=== PATIENT | female | born 1990 | race Native Hawaiian/Other Pacific Islander ===

== ENCOUNTER 2019-03-25 10:57 | Inpatient (IN) | payer MEDICAID ==
[2019-03-25] VITALS (11 sets, daily range): BP systolic 127–144; BP diastolic 54–95; PULSE 59–74; TEMP 98.2–98.6
[~2019-03-25] VITALS: Ht 154.9 cm; Wt 96.4 kg
--- NOTE | 2019-03-25 12:30 | NUR ---
1150- Pt arrives on unit ambulatory as a direct admit from the office for active labor. Oriented to room. Pt into bathroom, changes into gown. 1159- Pt into bed. EFM and TOCO applied. Assessment completed. Pt denies complications with . Denies VB, LOF. +FM. IV start, labs obtained. Pt tolerated well. Consent forms explained and signed. Plan of care discussed, questions answered. Call light within reach.
[2019-03-25 12:38] LABS: BASO % 0.2 % (0.0-2.0); EOS # 0.2 (0.0-0.7); EOS % 1.6 % (0-4.0); GRAN # 8.7 (1.4-6.5); GRAN % 78.3 % (42.2-75.2); HEMATOCRIT 39.6 % (37.0-47.0); HEMOGLOBIN 13.6 g/dl (12.5-16.0); LYMPH # 1.6 (1.2-3.4); LYMPH % 14.5 % (20.0-51.0); MEAN CELL VOLUME 87 fl (80.0-100.0); MEAN CORPUSCULAR HEMOGLOBIN 30 pg (27.0-31.0); MEAN CORPUSCULAR HGB CONC 34 g/dl (33.0-37.0); MEAN PLATELET VOLUME 9.6 fl (7.4-10.4); MONO # 0.6 (0.1-0.6); PLATELET COUNT 249 K/mm3 (130-400); RED BLOOD COUNT 4.54 M/mm3 (4.10-5.30); REDCELL DISTRIBUTION WIDTH-CV 12.5 % (11.5-14.5)
--- NOTE | 2019-03-25 13:08 | NUR ---
1308- Pt requests to use bathroom and ambulate, discussed precautions. Pt verbalizes understanding. EFM and TOCO off. IV to saline lock.
--- NOTE | 2019-03-25 14:28 | NUR ---
1417- Hansa, Nursery RN and Magali, clinical application manager called to bedside. Pt feeling very pushy with UCs. Pt encouraged to breathe and not push, Pt controlled most of the time, no pushed noted by Pt. 1422- Dr Taylor at bedside, SVE 10/+1. Pt and room prepped, bed broken down for delivery. Pt encouraged to push with next UC. 1428- of viable male . Cord clamped and cut. Infant to warmer, tended to by nursery nurse. Cord gases and cord blood obtained. 1435- Spontaneous vaginal delivery of placenta. Pitocin started at 333mu via pump. Fundus massaged to firm. Perinuem intact. Pericare completed. Ice pack to perineum. Pt denies pain at this time.
--- NOTE | 2019-03-25 16:05 | NUR ---
1605- Pt ambulates to bathroom independently with RN standby. Voids 250ml. Pericare completed and explained. Peripad and underwear on, clean gown. Pt desires to sit in blue chair. Plan to finish IVF then Saline lock, Pt wants to visit baby in nursery then settle into PP room.
[2019-03-26 03:30] VITALS: BP 127/82; PULSE 67; TEMP 98.1
[2019-03-26] MEDS ORDERED: IBU600 MG PO (06:17)
[2019-03-26 09:30] VITALS: BP 130/79; PULSE 70; TEMP 98
--- NOTE | 2019-03-26 09:30 | NUR ---
Rests in bed, alert. Denies any needs at this time. Explained to patient about starting to pump.
[2019-03-26 11:19] LABS: HEMOGLOBIN 12.5 g/dl (12.5-16.0)
--- NOTE | 2019-03-26 11:30 | NUR ---
Rests in bed, alert. Family at bedside.
[2019-03-26 11:36] LABS: HEMATOCRIT 36.9 % (37.0-47.0)
[2019-03-26 12:30] VITALS: BP 131/77; PULSE 71; TEMP 98.2
[2019-03-26 16:15] VITALS: BP 136/81; PULSE 71; TEMP 97.7
[2019-03-26 21:30] VITALS: BP 144/82; PULSE 84; TEMP 98.8
[2019-03-27 10:00] VITALS: BP 134/87; PULSE 67
--- NOTE | 2019-03-27 10:20 | NUR ---
PATIENT TO BOARDER STATUS
--- NOTE | 2019-03-27 11:00 | NUR ---
Initial visit; Patient thanked Nutrition Director for offering congratulations and God's blessings for the of her son. Nutrition Director thanked patient for choosing [facility].
== END 2019-03-27 10:20 | disposition home or self-care (01) | DRG 807 ==
LOC: LDRO 10:57 → EDSTATUS 11:13 → OB 11:16 → LDR 11:47 → OB 11:47 → LDR 11:50 → OB 03-26 09:42
PROVIDERS: ADMIT Obstetrics & Gynecology
PROC: 10E0XZZ Delivery of Products of Conception, External Approach (ICD-10-PCS; principal; 2019-03-25)
DX: O77.0 Labor and delivery complicated by meconium in amniotic fluid (principal); Z37.0 Single live birth; Z3A.38 38 weeks gestation of pregnancy; O99.214 Obesity complicating childbirth; K21.9 Gastro-esophageal reflux disease without esophagitis; O99.62 Diseases of the digestive system complicating childbirth; O99.824 Streptococcus B carrier state complicating childbirth
CPT/HCPCS: J2540; J2590; J7120

== ENCOUNTER → 2020-04-13 | Outpatient (CLI) | payer MEDICAID ==
[~2020-04-13] MED LIST: IBU600 MG PO
== END ==
LOC: DIA.ED 10:35
DX: O24.419 Gestational diabetes mellitus in pregnancy, unspecified control (principal)
CPT/HCPCS: G0108

== ENCOUNTER → 2020-05-11 | Outpatient (CLI) | payer MEDICAID | LOC: DIA.ED 05-02 11:45 | DX: O24.419 Gestational diabetes mellitus in pregnancy, unspecified control (principal); Z79.84 Long term (current) use of oral hypoglycemic drugs | CPT/HCPCS: G0108 ==

== ENCOUNTER → 2020-05-25 | Outpatient (CLI) | payer MEDICAID | LOC: DIA.ED 09:30 | DX: O24.419 Gestational diabetes mellitus in pregnancy, unspecified control (principal); Z79.84 Long term (current) use of oral hypoglycemic drugs | CPT/HCPCS: G0108 ==

== ENCOUNTER 2020-06-14 14:44 | Outpatient (CLI) | payer MEDICAID ==
[~2020-06-14] VITALS: Ht 154.9 cm; Wt 98.2 kg
--- NOTE | 2020-06-14 15:00 | NUR ---
Patient ambulatory to unit alone. Patient sent from office for FHR monitoring and serial BP's for BPP of 4/8 at office. Patient in gown and resting in bed. FHR and contraction monitors placed and explained. VS stable. Assessment completed. Patient states baby has been active and movement felt by this nurse while monitors placed.
[2020-06-14 15:01] VITALS: BP 128/69; PULSE 74; TEMP 97.8
[2020-06-14] MEDS ORDERED: GLUCOPHAGE500 MG/TAB PO (15:05)
[2020-06-14] MEDS ORDERED: PRENATAL TABLET PO (15:06)
--- NOTE | 2020-06-14 15:10 | NUR ---
Patient given apple juice. 1550: Patient states she has felt baby moving more after drinking juice. 1556: Patient off monitors. Discharge instructions reviewed. Patient verbalizes understanding.
[2020-06-14 15:56] VITALS: BP 125/77; PULSE 77
== END 2020-06-14 16:10 | disposition home or self-care (01) ==
LOC: LDRO 14:44
DX: O36.8990 Maternal care for other specified fetal problems, unspecified trimester, not applicable or unspecified (principal); Z3A.39 39 weeks gestation of pregnancy

== ENCOUNTER → 2020-06-15 | Outpatient (CLI) | payer MEDICAID ==
[~2020-06-15] MED LIST changes: +GLUCOPHAGE500 MG/TAB PO; +MOTRIN 800800 MG/TAB PO; +PRENATAL TABLET PO
== END | disposition still patient (30) ==
LOC: ZCOL.LAB 06-14 00:01
DX: Z20.828 Contact with and (suspected) exposure to other viral communicable diseases (principal)